=== PATIENT | male | born 1985 | race American Indian/Alaskan Native ===

== ENCOUNTER 2017-08-18 10:40 | Emergency (ER) | payer OTHER ==
--- NOTE | 2017-08-18 14:20 | Emergency Department Report ---
Chief Complaint: Extremity Injury, Lower Stated Complaint: THINKS SCREWS ARE COMING OUT LEFT ANKLE Time Seen by Provider: 08/18/17 14:07 - HPI History of Present Illness: Patient is a 32-year-old -[place] male who is presenting with left ankle discomfort. Patient has a plate and screw in the left ankle he feels the lateral portion has become more swollen over the last 3-4 weeks. Patient states the pain is 2 out of 10 in severity is able to bear weight has been no acute trauma he states that the weather screw is located feels like that is bulging out more. - ROS Review of Systems: Systems reviewed are negative - Exam Vital Signs: Vital Signs 08/18/17 10:48 Temperature 98.6 F Pulse Rate 85 Respiratory 16 Rate Blood Pressure 152/96 O2 Sat by Pulse 98 Oximetry Physical Exam: Patient's left ankle has no swelling or tenderness or redness there is full range of motion patient does have a small area of is bulging out in the left lateral malleolus region secondary most likely to hardware MSE screening note: Focused history and physical exam performed. Due to findings the following was ordered: ED Medical Decision Making - Medical Decision Making Patient is deemed did not medical emergency and will be referred to orthopedics ED Disposition for MSE Clinical Impression: Ankle and/or foot joint stiffness Disposition: Z-07 MED SCREENING EXAM-LEFT Is pt being admited?: No Does the pt Need Aspirin: No Condition: Stable Referrals: JAGUAR BAZZI MD [Staff Physician] - 3-5 Days
[2017-08-18 14:35] VITALS: BP 137/83
== END 2017-08-18 14:33 | disposition left against medical advice (07) ==
LOC: ED 10:40
DX: M25.572 Pain in left ankle and joints of left foot (principal)
CPT/HCPCS: 99282